=== PATIENT | male | born 1990 | race Caucasian/White ===

== ENCOUNTER 2024-03-24 07:37 | Emergency (ER) | payer BC, SELFPAY ==
[2024-03-24 07:37] VITALS: BMI 36.9
--- NOTE | 2024-03-24 07:47 | XR_ITS ---
Examination: PA lateral chest 2 views TECHNIQUE: Upright PA lateral chest 2 views Exam date and time: March 24, 2024 0754 hours Comparison August 21, 2022 INDICATIONS: Coughing beginning 2 months ago worse the last 3 days. FINDINGS: Mild opacity in the lingular segment on the lateral view Right lung clear Normal heart size IMPRESSION: Early pneumonia lingular segment left upper lobe
[2024-03-24 07:49] VITALS: BP 164/94; PULSE 113; RESP 18; TEMP 36.9; O2SAT 95
[2024-03-24 08:54] LABS: Basophils # (Auto) 0.1 Thou/mm3 (0.0-0.2); Basophils % (Auto) 1 % (0-2.5); Eosinophils # (Auto) 0.2 Thou/mm3 (0.0-0.5); Eosinophils % (Auto) 2 % (0-10); Hematocrit 46.7 % (41.0-53.0); Hemoglobin 16.5 g/dL (13.5-16.0); Immature Granulocytes % (Auto) 0 % (0-0); Immature Granulocytes Auto 0.04 Thou/mm3 (0.00-0.00); Lymphocytes % (Auto) 19 % (10-50); Mean Corpuscular HGB Conc 35.3 g/dl (31.0-37.0); Mean Corpuscular Hemoglobin 29.6 pg (25.0-35.0); Mean Corpuscular Volume 84 fL (80-100); Monocytes % (Auto) 9 % (0-12); Neutrophils # (Auto) 7.3 Thou/mm3 (1.8-7.7); Neutrophils % (Auto) 70 % (37-80); Nucleated Red Blood Cell % 0 /100 WBC (0); Platelet Count 219 Thou/mm3 (140-440); RDW Standard Deviation 38.6 fL (35.1-43.9); Red Blood Count 5.58 Miln/mm3 (4.50-5.90); White Blood Count 10.5 Thou/mm3 (3.8-10.6)
[2024-03-24 09:00] LABS: B-Type Natriuretic Peptide < 20 pg/mL (0-100)
[2024-03-24 09:02] LABS: Alanine Aminotransferase 52 U/L (10-49); Albumin/Globulin Ratio 1.7 (1.2-2.2); Alkaline Phosphatase 102 U/L (46-116); Anion Gap 9 (7-16); Aspartate Amino Transferase 14 U/L (0-34); BUN/Creatinine Ratio 9 Ratio (12-20); Bilirubin,Total 0.7 mg/dL (0.3-1.2); Blood Urea Nitrogen 10 mg/dL (9-23); Calcium 9.6 mg/dL (8.3-10.6); Calcium (Corrected) 9.6 mg/dL (8.5-10.1); Carbon Dioxide 26.1 mMol/L (20.0-31.0); Chloride 101 mMol/L (98-107); Creatinine (Component) 1.1 mg/dL (0.6-1.3); Estimated Creatinine Clearance 117.5 mL/min (>60); Glucose 111 mg/dL (74-106); Osmolality,Calculated 271 (275-295); Potassium 4.2 mMol/L (3.4-5.1); Sodium 136 mMol/L (136-145); eGFR > 60 See Note
--- NOTE | 2024-03-24 10:05 | PD.EDURI ---
Upper Respiratory Inf. RME/HPI General Chief Complaint: Flu Like Symptoms Stated Complaint: COUGH FOR 2 MONTHS Time Seen by Provider: 03/24/24 07:41 Arrival date/time: 03/24/24 07:37 33-year-old male presents the emergency department complains of a cough x 2 months patient reports no shortness of breath patient reports no chest pain there are no other associated symptoms or aggravating factors no other modifying factors, patient denies taking medication before coming to ER today Limitations: no limitations Related Data Previous Rx's ?Medication ?Instructions ?Recorded azithromycin 500 mg tablet See Rx Instructions PO .COMPLEX #6 03/24/24 tabs benzonatate 100 mg capsule 100 mg PO TID #14 caps 03/24/24 prednisone 10 mg tablet 30 mg (3 x 10 mg) PO BID 3 days 03/24/24 #18 tabs Allergies Allergy/AdvReac Type Severity Reaction Status Date / Time No Known Allergies Allergy Verified 03/24/24 07:39 Review of Systems Review of Systems Systems Reviewed: All systems reviewed, normal except as documented Constitutional Constitutional: Reports system reviewed and no additional complaints, except as documented, Denies fever(s) and Denies headache(s) Eyes Eyes: Reports system reviewed and no additional complaints, except as documented and Denies blurry vision ENT Ears, Nose, Mouth, and Throat: Reports system reviewed and no additional complaints, except as documented, Denies headache(s), Reports nasal congestion and Reports nasal discharge Cardiovascular Cardiovascular: Reports system reviewed and no additional complaints, except as documented, Denies chest pain and Denies dyspnea Respiratory Respiratory: Reports system reviewed and no additional complaints, except as documented, Reports chest congestion, Reports cough and Denies dyspnea Gastrointestinal Gastrointestinal: Reports system reviewed and no additional complaints, except as documented and Denies abdominal pain Integumentary/Breasts Skin/Breast: Reports system reviewed and no additional complaints, except as documented and Denies rash Neurologic Neurologic: Reports system reviewed and no additional complaints, except as documented, Reports as per HPI and Denies headache(s) Past Medical History Past Medical History NEUROLOGIC: Negative Neurological Disorders CARDIAC: Negative Cardiac Disorders ED Exam General Limitations: Present no limitations General appearance: Present alert and in no apparent distress Head Head exam: Present atraumatic, normocephalic and normal inspection Eye Eye exam: Present normal appearance, PERRL and EOMI; Absent conjunctival injection ENT ENT exam: Present normal exam, normal oropharynx and mucous membranes moist Neck Neck exam: Present normal inspection, full ROM and trachea midline Chest Chest inspection: Present normal inspection and symmetric chest wall rise Respiratory Respiratory exam: Present normal lung sounds bilaterally; Absent respiratory distress, wheezes, stridor or accessory muscle use Cardiovascular Cardiovascular exam: Present regular rate, normal rhythm and normal heart sounds Abdominal Exam Abdominal exam: Present soft and normal bowel sounds; Absent distention, tenderness, guarding, rebound or rigidity Extremities Exam Extremities exam: Present normal inspection and full ROM Back Exam Back exam: Present normal inspection and full ROM Neurological Exam Neurological exam: Present alert, oriented X3 and CN II-XII intact Psychiatric Psychiatric exam: Present normal affect and normal mood Skin Skin exam: Present warm, dry, intact and normal color Course Quality Measures none Orders Category Date Time Status Bedside COVID-19 Antigen Test NOW Care 03/24/24 07:47 Completed Bedside Influenza A&B Antigen Test NOW Care 03/24/24 07:47 Completed XR chest 2V Stat Exams 03/24/24 07:47 Completed BNP [B-Type Natriuretic Peptide] Stat Lab 03/24/24 08:29 Completed CBC Stat Lab 03/24/24 08:29 Completed CMP [Comprehensive Metabolic Panel] Stat Lab 03/24/24 08:29 Completed Cocci Serology IgM with reflex to IgG [Cocci Serology, Lab 03/24/24 08:29 Results Unk History] Stat Vital Signs Vital signs: Vital Signs Temperature 98.5 F 03/24/24 07:49 Pulse Rate 113 H 03/24/24 07:49 Respiratory Rate 18 03/24/24 07:49 Blood Pressure 164/94 H 03/24/24 07:49 Pulse Oximetry (%) 95 03/24/24 07:49 Oxygen Delivery Method Room Air 03/24/24 07:49 O2 saturation 95% room air within normal limits Upper Respiratory Infection MDM Narrative MDM Narrative:: 33-year-old male presents the emergency department complains of a cough x 2 months patient reports no shortness of breath patient reports no chest pain there are no other associated symptoms or aggravating factors no other modifying factors, patient denies taking medication before coming to ER today On exam patient well-appearing patient does not appear ill or toxic patient does not appear in acute distress Chest x-ray obtained lab work obtained no acute emergent findings noted there is suspicious for pneumonia patient be treated with course of antibiotics and cough medicine Cocci was ordered cocci is negative Patient discharged home in no distress to follow-up with primary care doctor in the next 24 to 48 hours and for any worsening symptoms to return to the ER immediately Patient data External records reviewed:: [facility] previous records Clinical information provided by:: patient Social determinants that could affect healthcare access:: none Patient has the following chronic illnesses:: None How is presenting disease/condition affected by chronic disease/condition?: no chronic disease Evaluation data The following diagnostics were reviewed and interpreted by me:: lab results and radiology exam(s) Lab and/or radiology exams considered but not ordered:: Labs radiology obtain Interpretation Summary: Reviewed by me Medications / Prescriptions Medications or Prescriptions considered but not ordered:: Given Medication administrations:: Given Consultations Consultation(s) initiated? (list below): No Diagnosis Upper Respiratory Differential Diagnosis: upper respiratory infection, sinusitis, viral infection and pharyngitis Most likely diagnosis given after review of the tests above:: URI Admission Indicated Admission indicated?: not indicated Admission Request Was there a request for admission?: No Disposition Plan Disposition Plan: Discharge Discharge Attestation Discharge Attestation: The patient and all family members were given an opportunity to ask questions and understood the discharge instructions. Discharge instructions specifically effects, indications for sooner follow up or return to the emergency department, and the expected course of current diagnosis. Patient condition: Stable Discharge Plan Plan Patient Disposition: HOME (Self Care) Disposition Comment: Stable Prescriptions/Referrals Prescriptions/Med Rec: New prednisone 10 mg tablet 30 mg PO BID 3 Days Qty: 18 0RF benzonatate 100 mg capsule 100 mg PO TID Qty: 14 0RF azithromycin 500 mg tablet See Rx Instructions .ROUTE .COMPLEX Qty: 6 0RF Rx Instructions: take 500 mg today (day 1), then 250 mg for 4 days (days 2-5) Referrals: Farhan Kumar MD [Primary Care Provider] - 03/25/24 Problem List Clinical Impression: Pneumonia Patient/Caregiver Discharge Instructions Education Materials: ED Pneumonia (Adult) Additional Instructions: Please follow up with your primary care doctor in the next 24-48hrs for any worsening symptoms return here immediately Your valley fever test is pending please follow-up with results Print Language: Israeli Stand Alone Forms: Mayra Award Info., Work/School Release, Patient Portal Info Letter JENY/KEYUR Supervising Physician JENY/KEYUR Supervising Physician: Dr uribe
[2024-03-24 14:34] LABS: Cocci Serology, IgM Negative (Negative)
[2024-03-25 14:01] LABS: Cocci Serology, IgG Negative (Negative)
== END 2024-03-24 10:59 | disposition home or self-care (01) ==
PROVIDERS: Nurse Practitioner Primary Care; Emergency Provider Emergency Medicine; PCP Internal Medicine
DX: J18.9 Pneumonia, unspecified organism (principal)
CPT/HCPCS: 36415; 71046; 80053; 83880; 85025; 86331; 86635; 87400; 87811; 99283